=== PATIENT | female | born 1970 | race Caucasian/White ===

== ENCOUNTER → 2017-07-24 | Outpatient (CLI) | payer BC ==
--- NOTE | ~2017-07-24 | CT2 ---
[facility] A Service of [facility] RADIOLOGY TEXT RESULTS PATIENT: DORIE RODRIGUEZ LOCATION: [facility] : 72 UNIT #: [id number] AGE: [address]: TRISTAN SHULTZ SEX: F ORDER DR: [id number] [place], [place] [address] [id number] MR#: [id number] Acc #: [id number] NAME: DORIE RODRIGUEZ : 1970 SEX: F STUDY DATE/TIME: 07/24/2017 15:57 UNIT: [facility]AT ROOM: STUDY DESCRIPTION: CT Abd and Pelv W Cont Attending Physician: Tristan Shultz Aprn Referring Physician: Tristan Shultz Aprn Primary Care Physician: Jackie Chan M.D. MEDICAL IMAGING REPORT This report is preliminary unless electronic signature is present EXAM CT abdomen and pelvis with contrast. HISTORY 46-year-old female Crohn's disease. Diffuse abdominal pain since 07/14/2017. COMPARISON 04/04/2007 FINDINGS Axial images performed through the abdomen and pelvis following IV and oral contrast. Multiplanar reconstructed images reviewed at a workstation. This CT exam was performed with one or more of the following radiation dose reduction techniques: automatic exposure control, adjustment of mA and/or kV according to patient size, and iterative reconstruction. Lung bases unremarkable. The liver, spleen and gallbladder appear normal. Pancreas, kidneys and adrenal glands unremarkable. There is focal bowel wall thickening involving a portion of the distal small bowel near the terminal ileum. This extends over approximately 6 cm length. There is some actual thickening of the terminal ileum. No significant mesenteric inflammatory change. No fistula or abscess. No obstruction. Retroperitoneum unremarkable. PELVIS: Bladder, uterus and adnexa appear normal. Osseous structures and soft tissues appear normal. IMPRESSION [facility] A Service of [facility] RADIOLOGY TEXT RESULTS PATIENT: DORIE RODRIGUEZ LOCATION: [facility] : 72 UNIT #: [id number] AGE: [address]: TRISTAN SHULTZ SEX: F ORDER DR: 1. Small bowel inflammatory changes involving the distal small bowel involving a short segment of the terminal ileum as well as a 6 cm segment of small bowel proximal to the terminal ileum. Though, nonspecific in the setting of Crohn's, this would be compatible with active Crohn's disease. No obstruction. No perforation or fistula formation demonstrated. Dictated by... Koko Salas M.D. THIS IS AN ELECTRONICALLY VERIFIED REPORT Koko Salas M.D. at 07/25/2017 6:54 PM [place] TD: 07/24/2017 21:27 JOB #: [id number] MEDICAL IMAGING REPORT Page 1 of 1 COPY
== END | disposition home or self-care (01) ==
LOC: CCAT 14:21
DX: K50.90 Crohn's disease, unspecified, without complications (principal); K52.9 Noninfective gastroenteritis and colitis, unspecified
CPT/HCPCS: 74177; Q9967